=== PATIENT | male | born 1955 | race Caucasian/White ===

== ENCOUNTER 2024-09-16 10:03 | Outpatient (REF) | payer MEDICARE, SELFPAY ==
--- NOTE | 2024-09-16 10:09 | EMG_ITS ---
Right median and ulnar motor and sensory studies were performed right radial sensory and median and lateral antecubital brachial sensory studies were performed and EMG needle examination was performed. Impression: 1. 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 Vpyv-al-ocfqcgvc right median neuropathy across carpal tunnel MTDD
--- OUTSIDE RECORDS SUMMARY | 2024-09-16 10:58 | XMS_ITS ---
Author Name [facility] Organization Unknown Care Team Organization Name Specialty Phone Email Start Date End Da te [facility] BETTY GONZALEZ Primary Care 07/14/2022 024 [facility] MICHELLE MARIN Primary Care 12/13/2021 09/24/19 24
--- OUTSIDE RECORDS SUMMARY | 2024-09-16 10:58 | XMS_ITS | Patient Health Record ---
Author Organization [facility] Address [address] [place] [address] Care Team Providers Care Berry Grower Name Role Phone Jean Carlos Kong Primary Care Provider DayaWanda Moe Unavailable [phone] Reason For Referral No Information Medications Medication SIG (Take, Route, Fr equency, Duration) Notes Start Date End Date Status Lisinopril Active Cephalexin 500 MG 1 tablet Orally Twic e a day; Duration: 10 day(s) 09/22/2014 Not-Taking Requip Active Pantoprazole Sodium Not-Taking Augmentin Not-Taking Januvia Not-Taking Simvastatin Not-Taki ng Work Note . . . 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 05/05/2014 Active Aspirin Active Keflex 500 MG 1 capsule Orally mercedes ry 12 hrs; Duration: 10 day(s) 10/06/2014 Not-Joshua ing metFORMIN HCl ER Act mayra Social History Alcohol Screen Question Answer Notes Did you have a drink contain ing alcohol in the past year? Yes How often did you have a dri nk containing alcohol in the past year? 2 to 3 times a week (3 points) Points 3 Interpretation Negative Tobacco use other than smoking: Question Answer Notes Are you an other tobacco user? No Problems Problem Type SNOMED Code ICD Code Onset Dates Problem Status W/U Status Risk Notes Problem Acquired hammer toe of right foot (2905383633171357 ) Other hammer toe(s) (acquired), right foot (M20.41) Active confirmed Problem Acquired hammer toe of left foot (8519034652834701 ) Other hammer toe(s) (acquired), left foot (M20.42) Active confirmed Problem Polyneuropathy due to type 2 diabetes mellitus (093326180) Type 2 diabetes mellitus with diabetic polyneuropathy (E11.42) Active confirmed Plan Of Treatment Pending Test Test Name Order Date X ray : Foot, left 3V 09/15/2011 81300-[id number] NAIL, 6 OR MORE 06/04/2012 40243-Htmjbbvh Plate 10/13/2011 93780-Zcrhgmyu Plate 10/31/2011 26947-Kxrhxkux Plate 04/25/2011 48631-QTD 04/25/2011 33865-DZG 09/09/2013 04013- Debride <25 sq cm 06/09/2011 66097- Debride <25 sq cm 07/11/2011 10245- Debride <25 sq cm 09/15/2011 51522- Debride <25 sq cm 09/19/2012 61877- Debride <25 sq cm 10/06/2014 65829-LEGQKEC SKIN/TISSUE 05/09/2011 75807-XZYFZRZ SKIN/TISSUE 10/09/2013 40736 I&D ABSCESS- SIMPLE,SINGLE 013 76453 I&D ABSCESS- SIMPLE,SINGLE 012 20777 I&D ABSCESS- SIMPLE,SINGLE 011 52512 I&D ABSCESS- SIMPLE,SINGLE 015 20369, J3525-TFQZS/INJECT, JOINT/BURSA 0 09/15/2011 65970, Z1203-ETRDI/INJECT, JOINT/BURSA 0 05/05/2014 24156, Q5782-GOKFO/INJECT, JOINT/BURSA 0 05/22/2014 41199-JAZP NAIL(S) 10/06/2016 V3117-Qfuglodnp 3mg 09/15/2011 Insurance Providers Payer Name Payer Address Payer Phone Subscriber Number Group Number Insured Name Patient Relationship to Insured Coverage Start Date Coverage End Date [employer] [address] [place] [address] [phone] [id number] Hasmukh Perez Self - patient is the insured 3 Medical (General) History Medical History History ICD Code measles mumps chicken pox hypertension diabetic Surgical History Surgery Date(Month/Year) cholecystectomy left carpal tunnel 11/2013
== END 2024-09-16 10:04 | disposition home or self-care (01) ==
LOC: HO.NEURO 10:03
PROVIDERS: Visit Provider Student in an Organized Health Care Education/Training Program
DX: G56.21 Lesion of ulnar nerve, right upper limb (principal)
CPT/HCPCS: 95886; 95910

== ENCOUNTER → 2024-09-16 10:09 | Outpatient (BNV) | payer MEDICARE, SELFPAY | PROVIDERS: Visit Provider Psychiatry & Neurology Neurology | DX: G56.01 Carpal tunnel syndrome, right upper limb (principal); G56.21 Lesion of ulnar nerve, right upper limb | CPT/HCPCS: 95886; 95910 ==